=== PATIENT | male | born 1960 | race Two or more races ===

== ENCOUNTER 2017-06-30 02:19 | Emergency (ER) | payer MEDICAID ==
[~2017-06-30] VITALS: Ht 185.4 cm; Wt 62.7 kg
[2017-06-30] MEDS ORDERED: LORazepam 1MG TABLET ONE (02:27)
[2017-06-30] MEDS ORDERED: LORazepam 1MG TABLET PO ONE ×2 (02:30→03:00)
[2017-06-30 04:16] VITALS: BP 133/74
[2017-06-30] MEDS ORDERED: ACEB400C PO (17:25)
== END 2017-06-30 04:18 | disposition home or self-care (01) ==
LOC: ED 04:10
DX: F43.22 Adjustment disorder with anxiety (principal)
CPT/HCPCS: 82962; 93005; 99284

== ENCOUNTER 2017-06-30 15:03 | Inpatient (IN) | payer MEDICAID ==
[~2017-06-30] VITALS: Ht 177.8 cm; Wt 67.3 kg
[2017-06-30 15:27] LABS: BASOPHILS # (AUTO) 0.07 x10^3/uL (0-0.1); BASOPHILS % (AUTO) 1 % (0-1); EOSINOPHILS # (AUTO) 0.04 x10^3/uL (0-0.4); EOSINOPHILS % (AUTO) 1 % (1-7); LYMPHOCYTES # (AUTO) 2.98 x10^3/uL (1-3.4); LYMPHOCYTES % (AUTO) 38 % (22-44); MD NO; MEAN CORPUSCULAR HEMOGLOBIN 31.8 pg (27.5-34.5); MEAN CORPUSCULAR HGB CONC 34.1 g/dL (33.2-36.2); MEAN CORPUSCULAR VOLUME 93.1 fL (81-97); MEAN PLATELET VOLUME 7.8 fL (7.4-10.4); MONOCYTES # (AUTO) 0.82 x10^3/uL (0.2-0.8); MONOCYTES % (AUTO) 11 % (2-9); NEUTROPHILS # (AUTO) 3.88 x10^3/uL (1.8-6.8); NEUTROPHILS % (AUTO) 50 % (42-75); PLATELET COUNT 205 x10^3/uL (130-400); RED BLOOD COUNT 5.12 x10^6/uL (4.38-5.82); RED CELL DISTRIBUTION WIDTH 13.7 % (9.4-14.8)
[2017-06-30] MEDS ORDERED: LORazepam 2 MG/ML, 1ML IVPush ONE (15:30)
[2017-06-30] MEDS ORDERED: SODIUM CHLORIDE FLUSH 10ML SYR IVF ONE (15:30)
[2017-06-30] MEDS ORDERED: LORazepam 2 MG/ML, 1ML ONE (15:31)
[2017-06-30 15:36] LABS: ALBUMIN 4.1 g/dL (3.4-5.0); ANION GAP 9 mmol/L (5-15); CHLORIDE 103 mmol/L (98-107)
[2017-06-30 15:41] LABS: ALANINE AMINOTRANSFERASE 31 U/L (12-78); ALKALINE PHOSPHATASE 64 U/L (45-117); BILIRUBIN,TOTAL 0.6 mg/dL (0.2-1.0); CREATININE 1.08 mg/dL (0.7-1.3); TOTAL PROTEIN 8.5 g/dL (6.4-8.2); TROPONIN I < 0.015 ng/mL (0.000-0.045)
[2017-06-30] MEDS ORDERED: ONDANSETRON 2MG/ML, 2ML IVPush PRN (17:00)
[2017-06-30] MEDS ORDERED: ACETAMINOPHEN 325 MG TABLET PO PRN (17:00)
[2017-06-30] MEDS ORDERED: hydrALAzine 20 MG/ML, 1ML IVPush PRN (17:00)
[2017-06-30] MEDS ORDERED: morphine SULFATE 10 MG/ML, 1ML IVPush PRN (17:00)
[2017-06-30] MEDS: SODIUM CHLORIDE 0.9% 1,000 ML IV SCH ×2 (17:07→20:35)
[2017-06-30] MEDS ORDERED: ACEB400C PO (17:25)
[2017-06-30] MEDS ORDERED: morphine SULFATE 10 MG/ML, 1ML ONE (19:49)
[2017-06-30 20:37] VITALS: BP 158/79
[2017-06-30 23:20] LABS: TROPONIN I < 0.015 ng/mL (0.000-0.045)
[2017-07-01 01:55] VITALS: BP 120/70
[2017-07-01 05:39] LABS: CHOL/HDL RATIO 3.7; CHOLESTEROL, TOTAL 150 mg/dL (140-239); HDL CHOL % 27 % (26-37); HDL CHOLESTEROL (DIRECT) 41 mg/dL (40-60); LDL CHOLESTEROL,CALCULATED 95 mg/dL (54-169); LDL/HDL RATIO 2.3 (0.5-3.0); TRIGLYCERIDES 71 mg/dL (50-200); TROPONIN I < 0.015 ng/mL (0.000-0.045); VLDL CHOLESTEROL 14 mg/dL (0-25)
[2017-07-01 08:54] VITALS: BP 145/77
[2017-07-01] MEDS ORDERED: REGADENOSON 0.4 MG/5 ML SYRINGE ONE (11:15)
[2017-07-01] MEDS ORDERED: FLU VACC QS2017-18 (36MOS+) UP/PF 0.5 ML IM-VACC ONE (16:00)
== END 2017-07-01 16:00 | disposition home or self-care (01) | DRG 882 ==
LOC: ED 16:37 → EDIP 16:38 → SUATTDRO 16:41 → ED 16:55 → 5SO 18:47 → EDIP 18:47 → 5SO 20:07
PROVIDERS: ADMIT Hospitalist; ATTEND Hospitalist
DX: F43.20 Adjustment disorder, unspecified (principal); I10 Essential (primary) hypertension; R07.89 Other chest pain; I25.10 Atherosclerotic heart disease of native coronary artery without angina pectoris; R55 Syncope and collapse; I25.2 Old myocardial infarction; Z83.3 Family history of diabetes mellitus; Z87.891 Personal history of nicotine dependence; Z82.49 Family history of ischemic heart disease and other diseases of the circulatory system; Z23 Encounter for immunization
CPT/HCPCS: 36415; 71010; 78452; 80053; 80061; 84484; 85025; 90686; 93005; 93017; 93306; 96374; J2785; A9502; C9898; J2060; J7030

== ENCOUNTER 2018-06-23 08:45 | Observation (INO) | payer OTHER ==
[~2018-06-23] VITALS: Ht 175.3 cm; Wt 67.0 kg
[~2018-06-23 08:45] MED LIST: ACEB400C PO
[2018-06-23] MEDS ORDERED: SODIUM CHLORIDE FLUSH 10ML SYR IVF ONE (09:00)
[2018-06-23 09:14] LABS: BASOPHILS # (AUTO) 0.02 x10^3/uL (0-0.1); BASOPHILS % (AUTO) 0 % (0-1); EOSINOPHILS # (AUTO) 0.08 x10^3/uL (0-0.4); EOSINOPHILS % (AUTO) 1 % (1-7); LYMPHOCYTES # (AUTO) 2.75 x10^3/uL (1-3.4); LYMPHOCYTES % (AUTO) 34 % (22-44); MD NO; MEAN CORPUSCULAR HEMOGLOBIN 31.4 pg (27.5-34.5); MEAN CORPUSCULAR VOLUME 95.3 fL (81-97); MEAN PLATELET VOLUME 7.7 fL (7.4-10.4); MONOCYTES # (AUTO) 0.52 x10^3/uL (0.2-0.8); MONOCYTES % (AUTO) 6 % (2-9); NEUTROPHILS # (AUTO) 4.78 x10^3/uL (1.8-6.8); NEUTROPHILS % (AUTO) 59 % (42-75); PLATELET COUNT 322 x10^3/uL (130-400); RED BLOOD COUNT 4.96 x10^6/uL (4.38-5.82); RED CELL DISTRIBUTION WIDTH 13.4 % (9.4-14.8)
[2018-06-23 09:25] LABS: ALANINE AMINOTRANSFERASE 26 U/L (12-78); ANION GAP 9 mmol/L (5-15); CALCIUM 8.6 mg/dL (8.5-10.1); CHLORIDE 104 mmol/L (98-107); CREATININE 0.99 mg/dL (0.7-1.3)
[2018-06-23 09:30] LABS: ALKALINE PHOSPHATASE 64 U/L (45-117); BILIRUBIN,TOTAL 0.6 mg/dL (0.2-1.0); TOTAL PROTEIN 7.8 g/dL (6.4-8.2); TROPONIN I < 0.015 ng/mL (0.000-0.045)
[2018-06-23] MEDS ORDERED: NITROGLYCERIN SINGLE TAB 0.4 MG SL PRN ×2 (09:30→17:00)
[2018-06-23] MEDS ORDERED: MORPHINE SULFATE 4 MG/ML, 1ML IVPush PRN (09:30)
[2018-06-23] MEDS ORDERED: ONDANSETRON 2MG/ML, 2ML IVPush ONE (09:30)
[2018-06-23] MEDS ORDERED: OMNIPAQUE 350 MG/ML, 100ML BOTTLE ONE (10:31)
[2018-06-23] MEDS ORDERED: DOCUSATE 100 MG CAPSULE PO PRN (14:30)
[2018-06-23] MEDS ORDERED: ACETAMINOPHEN 325 MG TABLET PO PRN (14:30)
[2018-06-23] MEDS ORDERED: OXYcodone IR 5MG TABLET PO PRN (14:30)
[2018-06-23] MEDS ORDERED: HEPARIN 5,000 UNITS/ML, 1ML SQ SCH (14:30)
[2018-06-23] MEDS ORDERED: morphine SULFATE 10 MG/ML, 1ML IVPush PRN (14:30)
[2018-06-23] MEDS ORDERED: BISACODYL 10 MG SUPP PR PRN (14:30)
[2018-06-23] MEDS ORDERED: hydrALAzine 20 MG/ML, 1ML IVPush PRN (14:30)
[2018-06-23] MEDS ORDERED: LABETALOL 5MG/ML, 20ML IVPush PRN (14:30)
[2018-06-23 14:51] LABS: FREE T4 (FREE THYROXINE) 0.93 ng/dL (0.76-1.46); THYROID STIMULATING HORMONE 1.88 mIU/L (0.358-3.740)
[2018-06-23] MEDS ORDERED: HEPARIN 5,000 UNITS/ML, 1ML ONE (15:03)
[2018-06-23] MEDS: SODIUM CHLORIDE 0.9% 1,000 ML IV SCH ×2 (15:22→16:44)
[2018-06-23] MEDS ORDERED: LORazepam 0.5MG TABLET PO PRN (16:00)
[2018-06-23 16:17] LABS: TROPONIN I < 0.015 ng/mL (0.000-0.045)
[2018-06-23 16:28] VITALS: BP 162/77
[2018-06-23 16:45] LABS: HEMOGLOBIN A1C 5.9 % (4.2-6.3)
[2018-06-23] MEDS ORDERED: POLYETHYLENE GLYCOL 17 GM PACKET PO PRN (17:00)
[2018-06-23] MEDS ORDERED: ONDANSETRON 2MG/ML, 2ML IVPush PRN (17:00)
[2018-06-23] MEDS ORDERED: ONDANSETRON ODT 4 MG PO PRN (17:00)
[2018-06-23] MEDS ORDERED: PROMETHAZINE 25 MG/ML, 1ML IM PRN (17:00)
[2018-06-23 19:50] VITALS: BP 120/72
[2018-06-23] MEDS ORDERED: GABAPENTIN 300 MG CAPSULE PO PRN (21:00)
[2018-06-23 22:36] LABS: TROPONIN I < 0.015 ng/mL (0.000-0.045)
[2018-06-23] MEDS: HEPARIN 5,000 UNITS/ML, 1ML SQ SCH (23:39)
[2018-06-24 01:40] VITALS: BP 148/64
[2018-06-24] MEDS: SODIUM CHLORIDE 0.9% 1,000 ML IV SCH (02:07)
[2018-06-24 05:20] LABS: ALANINE AMINOTRANSFERASE 18 U/L (12-78); ALBUMIN 3.2 g/dL (3.4-5.0); ANION GAP 7 mmol/L (5-15); CALCIUM 8.1 mg/dL (8.5-10.1); CHLORIDE 107 mmol/L (98-107); CHOLESTEROL, TOTAL 169 mg/dL (140-239); CREATININE 0.98 mg/dL (0.7-1.3)
[2018-06-24 05:21] LABS: BASOPHILS # (AUTO) 0.03 x10^3/uL (0-0.1); BASOPHILS % (AUTO) 0 % (0-1); EOSINOPHILS # (AUTO) 0.13 x10^3/uL (0-0.4); EOSINOPHILS % (AUTO) 2 % (1-7); LYMPHOCYTES # (AUTO) 2.78 x10^3/uL (1-3.4); LYMPHOCYTES % (AUTO) 38 % (22-44); MD NO; MEAN CORPUSCULAR HEMOGLOBIN 32.4 pg (27.5-34.5); MEAN CORPUSCULAR VOLUME 95.4 fL (81-97); MEAN PLATELET VOLUME 8.3 fL (7.4-10.4); MONOCYTES % (AUTO) 7 % (2-9); NEUTROPHILS # (AUTO) 3.97 x10^3/uL (1.8-6.8); NEUTROPHILS % (AUTO) 54 % (42-75); PLATELET COUNT 221 x10^3/uL (130-400); RED BLOOD COUNT 4.12 x10^6/uL (4.38-5.82); RED CELL DISTRIBUTION WIDTH 13.1 % (9.4-14.8)
[2018-06-24 05:22] LABS: ALKALINE PHOSPHATASE 50 U/L (45-117); BILIRUBIN,TOTAL 0.6 mg/dL (0.2-1.0); CHOL/HDL RATIO 2.6; HDL CHOL % 38 % (26-37); HDL CHOLESTEROL (DIRECT) 64 mg/dL (40-60); LDL CHOLESTEROL,CALCULATED 88 mg/dL (54-169); LDL/HDL RATIO 1.4 (0.5-3.0); TOTAL PROTEIN 6.2 g/dL (6.4-8.2); TRIGLYCERIDES 86 mg/dL (50-200); VLDL CHOLESTEROL 17 mg/dL (0-25)
[2018-06-24 07:50] VITALS: BP 152/75
[2018-06-24 08:17] LABS: TROPONIN I < 0.015 ng/mL (0.000-0.045)
[2018-06-24] MEDS: HEPARIN 5,000 UNITS/ML, 1ML SQ SCH ×2 (10:16→15:42)
[2018-06-24 14:00] VITALS: BP 156/77
[2018-06-24 19:56] VITALS: BP 126/70
[2018-06-25] MEDS: HEPARIN 5,000 UNITS/ML, 1ML SQ SCH ×2 (00:28→09:18)
[2018-06-25 00:30] VITALS: BP 124/72
[2018-06-25 05:22] LABS: BASOPHILS # (AUTO) 0.04 x10^3/uL (0-0.1); BASOPHILS % (AUTO) 1 % (0-1); EOSINOPHILS # (AUTO) 0.09 x10^3/uL (0-0.4); EOSINOPHILS % (AUTO) 1 % (1-7); LYMPHOCYTES # (AUTO) 2.34 x10^3/uL (1-3.4); LYMPHOCYTES % (AUTO) 33 % (22-44); MD NO; MEAN CORPUSCULAR HEMOGLOBIN 31.7 pg (27.5-34.5); MEAN CORPUSCULAR HGB CONC 33.2 g/dL (33.2-36.2); MEAN CORPUSCULAR VOLUME 95.6 fL (81-97); MEAN PLATELET VOLUME 7.9 fL (7.4-10.4); MONOCYTES # (AUTO) 0.49 x10^3/uL (0.2-0.8); MONOCYTES % (AUTO) 7 % (2-9); NEUTROPHILS # (AUTO) 4.09 x10^3/uL (1.8-6.8); NEUTROPHILS % (AUTO) 58 % (42-75); PLATELET COUNT 233 x10^3/uL (130-400); RED BLOOD COUNT 4.13 x10^6/uL (4.38-5.82); RED CELL DISTRIBUTION WIDTH 12.7 % (9.4-14.8)
[2018-06-25 05:24] LABS: ALBUMIN 3.3 g/dL (3.4-5.0); ANION GAP 4 mmol/L (5-15); CALCIUM 8.1 mg/dL (8.5-10.1); CHLORIDE 107 mmol/L (98-107); CREATININE 0.89 mg/dL (0.7-1.3)
[2018-06-25 05:30] LABS: TROPONIN I < 0.015 ng/mL (0.000-0.045)
[2018-06-25 08:00] VITALS: BP 137/80
== END 2018-06-25 11:30 | disposition home or self-care (01) ==
LOC: ED 12:16 → EDIP 12:17 → INTOOBSV 12:17 → 5SO 16:13
PROVIDERS: ADMIT Hospitalist; ATTEND Hospitalist
DX: R07.9 Chest pain, unspecified (principal); I10 Essential (primary) hypertension; I25.10 Atherosclerotic heart disease of native coronary artery without angina pectoris; I25.2 Old myocardial infarction; Z87.891 Personal history of nicotine dependence
CPT/HCPCS: 36415; 71045; 71275; 80048; 80053; 80061; 82040; 83036; 83735; 84439; 84443; 84484; 85025; 93005; 93306; 96372; 99284; G0378; J1644; J7030; Q9967

== ENCOUNTER 2018-11-08 20:33 | Emergency (ER) | payer OTHER ==
[~2018-11-08] VITALS: Ht 172.7 cm; Wt 70.0 kg
[2018-11-08] MEDS ORDERED: MAALOX/HYOSCYAMINE/LIDOCAINE 45 ML BTL PO ONE (21:00)
[2018-11-08] MEDS ORDERED: ONDANSETRON 2MG/ML, 2ML IVPush ONE (21:00)
[2018-11-08] MEDS ORDERED: FAMOTIDINE 20 MG/2 ML IVP ONE (21:00)
[2018-11-08] MEDS ORDERED: SODIUM CHLORIDE FLUSH 10ML SYR IVF ONE (21:00)
[2018-11-08 21:06] LABS: BASOPHILS # (AUTO) 0.01 x10^3/uL (0-0.1); BASOPHILS % (AUTO) 0 % (0-1); EOSINOPHILS # (AUTO) 0.01 x10^3/uL (0-0.4); EOSINOPHILS % (AUTO) 0 % (1-7); LYMPHOCYTES % (AUTO) 4 % (22-44); MD NO; MEAN CORPUSCULAR HEMOGLOBIN 32.5 pg (27.5-34.5); MEAN CORPUSCULAR HGB CONC 33.9 g/dL (33.2-36.2); MEAN CORPUSCULAR VOLUME 95.6 fL (81-97); MEAN PLATELET VOLUME 7.9 fL (7.4-10.4); MONOCYTES # (AUTO) 0.21 x10^3/uL (0.2-0.8); MONOCYTES % (AUTO) 2 % (2-9); NEUTROPHILS # (AUTO) 10.08 x10^3/uL (1.8-6.8); NEUTROPHILS % (AUTO) 94 % (42-75); PLATELET COUNT 238 x10^3/uL (130-400); RED BLOOD COUNT 4.85 x10^6/uL (4.38-5.82); RED CELL DISTRIBUTION WIDTH 13.6 % (9.4-14.8)
--- NOTE | 2018-11-08 21:10 | NUR ---
PAIGE RN AT BEDSIDE TO PLACE IV. BP/SPO2/ECG MONITORING IN PLACE. NSR ON MONITOR. PT AWAKE/ALERT, LAYING IN GURNEY. FAMILY AT BEDSIDE. FAMILY REPORTS N/V/D X TODAY. DENIES CP/SOB/BLOOD IN EMESIS OR STOOL.
[2018-11-08] MEDS ORDERED: FAMOTIDINE 20 MG/2 ML ONE (21:15)
[2018-11-08] MEDS ORDERED: ONDANSETRON 2MG/ML, 2ML ONE (21:15)
[2018-11-08] MEDS ORDERED: MAALOX/HYOSCYAMINE/LIDOCAINE 45 ML BTL ONE (21:15)
[2018-11-08 21:16] LABS: ALANINE AMINOTRANSFERASE 28 U/L (12-78); ALBUMIN 3.8 g/dL (3.4-5.0); ANION GAP 8 mmol/L (5-15); CALCIUM 8.6 mg/dL (8.5-10.1); CHLORIDE 111 mmol/L (98-107); CREATININE 0.99 mg/dL (0.7-1.3)
[2018-11-08 21:18] LABS: ALKALINE PHOSPHATASE 66 U/L (45-117); BILIRUBIN,TOTAL 0.5 mg/dL (0.2-1.0); TOTAL PROTEIN 7.8 g/dL (6.4-8.2)
[2018-11-08 21:19] VITALS: BP 113/66
--- NOTE | 2018-11-08 21:25 | NUR ---
PT MEDICATED PER EMAR FOR N/V.
[2018-11-08 21:28] LABS: TROPONIN I < 0.015 ng/mL (0.000-0.045)
[2018-11-08] MEDS ORDERED: SODIUM CHLORIDE 0.9% 1,000ML IVBOLUS ONE (21:30)
--- NOTE | 2018-11-08 22:33 | NUR ---
PT REPORTS 'FEELING BETTER'. POC IS DC. IV DC'D, PT UP TO DRESS SELF.
== END 2018-11-08 22:52 | disposition home or self-care (01) ==
LOC: ED 22:46
DX: A09 Infectious gastroenteritis and colitis, unspecified (principal); R10.84 Generalized abdominal pain; I25.2 Old myocardial infarction; I25.10 Atherosclerotic heart disease of native coronary artery without angina pectoris; I10 Essential (primary) hypertension
CPT/HCPCS: 36415; 74021; 80053; 83690; 84484; 85025; 93005; 96361; 96374; 96375; 99284; J2405; J3490; J7030

== ENCOUNTER 2020-07-21 13:03 | Observation (INO) | payer OTHER ==
[~2020-07-21] VITALS: Ht 177.8 cm; Wt 68.5 kg
--- NOTE | 2020-07-21 13:06 | NUR ---
PT IN BATHROOM WHEN CALLED FROM [facility]OBBY TO TRIAGE.
[2020-07-21] MEDS ORDERED: NITROGLYCERIN OINT 2%, 1GM TP ONE ×2 (13:35→14:00)
[2020-07-21] MEDS ORDERED: METOPROLOL 1 MG/ML, 5ML ONE (13:44)
--- NOTE | 2020-07-21 13:53 | NUR ---
TASK RN: PT MED NOTED WITH METOPROLOL WITH EFFECT HR NOW 68 AND PT DENIES ANY CHEST PRESSURE. VSS. CALL LIGHT W/I REACH. DR GARNICA UPDATED.
[2020-07-21] MEDS ORDERED: ATOR-2 PO (13:55)
--- NOTE | 2020-07-21 13:55 | NUR ---
REPORT FROM GILDA DUFFY WITH ASSESS-VSS PATIENT NOW REPORTING COMPLETE RESOLUTION IN PAIN ERP ASKED ABOUT NEED FOR ASPIRIN-ERP CONSIDERING
[2020-07-21 14:00] LABS: ALBUMIN 4.2 g/dL (3.4-5.0); ANION GAP 7 mmol/L (5-15); CALCIUM 9.4 mg/dL (8.5-10.1); CHLORIDE 107 mmol/L (98-107); CREATININE 0.95 mg/dL (0.7-1.3)
[2020-07-21] MEDS ORDERED: SODIUM CHLORIDE FLUSH 10ML SYR IVF ONE (14:00)
[2020-07-21] MEDS ORDERED: METOPROLOL 1 MG/ML, 5ML IVPush ONE (14:00)
[2020-07-21] MEDS ORDERED: SODIUM CHLORIDE 0.9% 1,000ML IVBOLUS ONE (14:00)
[2020-07-21 14:01] LABS: INTERNATIONAL NORMALIZED RATIO 1.01 (0.93-1.1); PROTHROMBIN TIME 10.7 Seconds (9.6-11.5)
[2020-07-21 14:03] LABS: BASOPHILS % (AUTO) 0 % (0-1); EOSINOPHILS % (AUTO) 1 % (1-7); LYMPHOCYTES % (AUTO) 33 % (22-44); MEAN CORPUSCULAR HEMOGLOBIN 32.1 pg (27.5-34.5); MEAN CORPUSCULAR HGB CONC 33.5 g/dL (33.2-36.2); MEAN PLATELET VOLUME 8.1 fL (7.4-10.4); MONOCYTES % (AUTO) 7 % (2-9); NEUTROPHILS % (AUTO) 59 % (42-75); PLATELET COUNT 237 x10^3/uL (130-400); RED BLOOD COUNT 4.34 x10^6/uL (4.38-5.82); RED CELL DISTRIBUTION WIDTH 13.1 % (9.4-14.8); TROPONIN I < 0.015 ng/mL (0.000-0.045)
[2020-07-21 14:15] LABS: MD NO
[2020-07-21] MEDS ORDERED: MELATONIN 5 MG TABLET PO PRN (15:30)
[2020-07-21] MEDS ORDERED: POLYETHYLENE GLYCOL 17 GM PACKET PO PRN (15:30)
[2020-07-21] MEDS ORDERED: ACETAMINOPHEN 325 MG TABLET PO PRN (15:30)
[2020-07-21] MEDS ORDERED: ONDANSETRON ODT 4 MG PO PRN (15:30)
[2020-07-21] MEDS ORDERED: TEMAZEPAM 15 MG CAPSULE PO PRN (15:30)
[2020-07-21] MEDS ORDERED: ONDANSETRON 2MG/ML, 2ML IVPush PRN (15:30)
[2020-07-21] MEDS ORDERED: POTASSIUM CHLORIDE 20 MEQ TAB.ER.PRT PO ONE (16:00)
--- NOTE | 2020-07-21 16:28 | NUR ---
ATTEMPTED TO CALL REPORT. INPATIENT RN UNAVAILABLE- WILL CALL BACK SHORTLY
--- NOTE | 2020-07-21 16:51 | NUR ---
INPATIENT RN STILL UNAVAILABLE FOR REPORT. TITLE CURATOR CALLING ASKING
[2020-07-21] MEDS: ENOXAPARIN 40 MG/0.4 ML SQ SCH (17:20)
[2020-07-21 17:25] VITALS: BP 189/75
[2020-07-21] MEDS ORDERED: hydrALAzine 20 MG/ML, 1ML IV PRN (18:00)
[2020-07-21 18:36] VITALS: BP 168/76
[2020-07-21 18:52] LABS: TROPONIN I < 0.015 ng/mL (0.000-0.045)
[2020-07-21 18:58] VITALS: BP 155/80
[2020-07-21] MEDS ORDERED: ATORVASTATIN 80 MG TABLET PO SCH (21:00)
[2020-07-21] MEDS ORDERED: ATORVASTATIN 20 MG TABLET ONE (21:13)
[2020-07-22 00:46] LABS: TROPONIN I < 0.015 ng/mL (0.000-0.045)
[2020-07-22 01:15] VITALS: BP 160/75
[2020-07-22 05:50] LABS: CHOL/HDL RATIO 1.7; LDL/HDL RATIO 0.5 (0.5-3.0)
[2020-07-22 07:25] VITALS: BP 168/74
[2020-07-22] MEDS ORDERED: REGADENOSON 0.4 MG/5 ML SYRINGE ONE (08:06)
[2020-07-22] MEDS ORDERED: ATENOLOL 50 MG TABLET PO SCH (09:00)
[2020-07-22 10:33] VITALS: BP 170/66
[2020-07-22] MEDS ORDERED: ATENOLOL 25 MG TABLET ONE (10:34)
[2020-07-22] MEDS ORDERED: ATORVASTATIN 20 MG TABLET PO SCH (11:00)
[2020-07-22 12:48] VITALS: BP 162/81
[2020-07-22] MEDS: ENOXAPARIN 40 MG/0.4 ML SQ SCH (15:47)
[2020-07-22] MEDS ORDERED: POTASSIUM CHLORIDE 20 MEQ TAB.ER.PRT PO ONE (16:30)
[2020-07-22] MEDS ORDERED: POTA20TA91 PO (16:59)
== END 2020-07-22 17:58 | disposition home or self-care (01) ==
LOC: ED 15:18 → SUATTDRO 15:18 → EDIP 15:19 → INTOOBSV 15:19 → ED 15:27 → 5SO 17:08
PROVIDERS: ADMIT Internal Medicine; ATTEND Internal Medicine
DX: I47.1 Supraventricular tachycardia (principal); I44.1 Atrioventricular block, second degree; I49.9 Cardiac arrhythmia, unspecified; I10 Essential (primary) hypertension; I25.110 Atherosclerotic heart disease of native coronary artery with unstable angina pectoris; E78.5 Hyperlipidemia, unspecified; E87.6 Hypokalemia; I25.2 Old myocardial infarction; F10.20 Alcohol dependence, uncomplicated; F12.10 Cannabis abuse, uncomplicated; Z87.891 Personal history of nicotine dependence; Z79.899 Other long term (current) drug therapy; Z79.02 Long term (current) use of antithrombotics/antiplatelets
CPT/HCPCS: 36415; 71045; 78452; 80048; 80061; 82040; 83735; 84443; 84484; 85025; 85379; 85610; 85730; 93005; 93017; 93306; 93356; 96372; 96374; 99285; A9502; G0378; J1650; J2785; J7030

== ENCOUNTER 2020-09-23 10:58 | Day surgery (SDC) | payer OTHER ==
[~2020-09-23] VITALS: Ht 175.3 cm; Wt 65.0 kg
[~2020-09-23 10:58] MED LIST changes: +ATOR-2 PO; +POTA20TA91 PO
[2020-09-23] MEDS ORDERED: PLEASE ENTER HEIGHT AND WEIGHT MC SCH (12:00)
[2020-09-23] MEDS ORDERED: SODIUM CHLORIDE 0.9% 1,000 ML IV SCH (12:00)
[2020-09-23 12:18] LABS: BASOPHILS % (AUTO) 1 % (0-1); EOSINOPHILS % (AUTO) 1 % (1-7); LYMPHOCYTES % (AUTO) 28 % (22-44); MEAN CORPUSCULAR HEMOGLOBIN 32.4 pg (27.5-34.5); MEAN CORPUSCULAR HGB CONC 33.9 g/dL (33.2-36.2); MONOCYTES % (AUTO) 7 % (2-9); NEUTROPHILS % (AUTO) 64 % (42-75); PLATELET COUNT 213 x10^3/uL (130-400); RED CELL DISTRIBUTION WIDTH 13.2 % (9.4-14.8)
[2020-09-23 12:26] LABS: MD NO
[2020-09-23 12:28] LABS: ANION GAP 4 mmol/L (5-15); CALCIUM 8.6 mg/dL (8.5-10.1); CHLORIDE 106 mmol/L (98-107); CREATININE 0.86 mg/dL (0.7-1.3)
[2020-09-23 12:30] LABS: INTERNATIONAL NORMALIZED RATIO 1.02 (0.93-1.1); PROTHROMBIN TIME 10.9 Seconds (9.6-11.5)
[2020-09-23] MEDS ORDERED: LIDOCAINE 1%, 20ML ONE (12:44)
[2020-09-23] MEDS ORDERED: FENTANYL PF 100 MCG/2ML ONE (12:44)
[2020-09-23] MEDS ORDERED: ADENOSINE 6 MG/2 ML ONE (12:44)
[2020-09-23] MEDS ORDERED: ISOPROTERENOL 0.2MG/ML, 5ML ONE (12:44)
[2020-09-23] MEDS ORDERED: MIDAZOLAM 1 MG/ML, 2ML ONE (12:46)
[2020-09-23 15:12] VITALS: BP 186/86
[2020-09-23] MEDS ORDERED: hydrALAzine 20 MG/ML, 1ML IV ONE (15:30)
[2020-09-23] MEDS ORDERED: ACETAMINOPHEN 325 MG TABLET PO PRN (15:30)
[2020-09-23 17:07] VITALS: BP 133/69
[2020-09-23 19:06] VITALS: BP 137/83
[2020-09-23 21:29] VITALS: BP 139/74
== END 2020-09-23 22:07 | disposition home or self-care (01) ==
LOC: CACL 10:58 → 5SO 14:42 → CACL 22:07
PROVIDERS: ATTEND Internal Medicine Clinical Cardiac Electrophysiology
DX: I47.1 Supraventricular tachycardia (principal); I48.91 Unspecified atrial fibrillation; Z20.822 Contact with and (suspected) exposure to COVID-19; Z79.899 Other long term (current) drug therapy; Z88.8 Allergy status to other drugs, medicaments and biological substances
CPT/HCPCS: 36415; 76937; 80048; 82962; 85025; 85610; 85730; 87635; 93005; 93613; 93621; 93623; 93653; 99156; 99157; C1730; C1766; C1894; C2630; J0360; J2250; J3010; J7030; G0378; J0153